=== PATIENT | female | born 1975 ===

== ENCOUNTER 2017-12-11 20:17 | Emergency (ER) | payer OTHER, MEDICARE ==
[2017-12-11 20:52] VITALS: RESP 20; TEMP 98.2; O2SAT 98
[2017-12-11] MEDS ORDERED: KETOROLAC TROMETHAMINE 30 MG/ML SOL IM ONE (21:12)
[2017-12-11] MEDS ORDERED: CYCLOBENZAPRINE 10 MG TAB PO ONE (21:13)
[2017-12-11] MEDS ORDERED: CYCLOBENZAPRINE 10 MG TAB ONE (21:33)
[2017-12-11] MEDS ORDERED: KETOROLAC TROMETHAMINE 30 MG/ML SOL ONE (21:33)
[2017-12-11 23:08] VITALS: BP 126/83; PULSE 81
== END 2017-12-11 22:16 | disposition home or self-care (01) | DRG 552 ==
LOC: ED 20:17
DX: M54.5 Low back pain (principal)
CPT/HCPCS: 96372; 99283; J1885; A9270-GY